=== PATIENT | female | born 1940 | race Caucasian/White ===

== ENCOUNTER → 2018-12-19 15:52 | Outpatient (CLI) | payer MEDICARE, SELFPAY ==
--- NOTE | 2018-12-19 | DI.MRI.S_ITS ---
PROCEDURE: MR SHOULDER RT WO CON INDICATIONS: Unspecified disorder of synovium and tendon, right TECHNIQUE: Noncontrast oblique coronal T2 fast spin echo with fat saturation, oblique sagittal T1 spin echo and T2 fast spin echo with fat saturation, axial T1 spin echo and T2 fast spin echo with fat saturation through the shoulder. COMPARISON: None. FINDINGS: Image quality: Excellent. Rotator cuff: Supraspinatus tendinopathy and thickening. Bursal sided partial-thickness tear at the footprint on image 12 series 8 measuring 5 mm. Mild infraspinatus tendinopathy and bursal surface fraying. Teres minor tendon appears intact. Subscapularis tendon demonstrates mild tendinopathy otherwise intact. Diffuse mild fatty infiltration of the rotator cuff musculature. No definite muscle atrophy. Bones and bursae: Marked marrow edema is present within the greater tuberosity and proximal humerus. Moderate glenohumeral and acromioclavicular joint degeneration. Acromion demonstrates conventional anatomy, without an os acromiale. Moderate subacromial-subdeltoid bursitis. Capsule and soft tissues: Age-appropriate mild fraying/degeneration of the labrum without discrete tear. Long head of the biceps tendinopathy. Partial obliteration of the subcoracoid fat Coracohumeral ligament intact. IMPRESSION: Marked marrow edema primarily involving the greater tuberosity although clear if this is reactive to degenerative changes versus severe marrow contusion. Please correlate clinically Supraspinatus tendinopathy and thickening, with bursal sided partial-thickness tear at the footprint. Mild infraspinatus tendinopathy and bursal surface fraying. Long head biceps tendinopathy. Moderate subacromial-subdeltoid bursitis. Degenerative joint disease. Mild subscapularis tendinopathy. Dictated by: Cyrus Powers M.D. on 12/19/2018 at 17:16 Approved by: Cyrus Powers M.D. on 12/19/2018 at 17:23
== END ==
PROVIDERS: Visit Provider Orthopaedic Surgery
DX: M67.911 Unspecified disorder of synovium and tendon, right shoulder (principal); M19.011 Primary osteoarthritis, right shoulder; M75.51 Bursitis of right shoulder
CPT/HCPCS: 73221